=== PATIENT | male | born 1955 | race Caucasian/White ===

== ENCOUNTER 2018-02-25 09:46 | Outpatient (CLI) | payer OTHER | END 2018-02-25 11:44 | disposition home or self-care (01) | LOC: RX STUDY 09:46 | DX: R13.12 Dysphagia, oropharyngeal phase (principal) ==

== ENCOUNTER 2024-08-08 10:26 | Outpatient (CLI) | payer OTHER | END 2024-08-08 10:43 | disposition home or self-care (01) | LOC: TOM 10:26 | PROVIDERS: ATTEND Student in an Organized Health Care Education/Training Program | DX: K65.1 Peritoneal abscess (principal) | CPT/HCPCS: 74178; Q9965 ==